=== PATIENT | female | born 1990 | race Caucasian/White ===

== ENCOUNTER 2023-08-20 22:41 | Emergency (ER) | payer OTHER ==
[~2023-08-20] VITALS: Ht 172.7 cm; Wt 74.8 kg
[2023-08-20 23:48] VITALS: BP 106/68; TEMP 98.1; O2SAT 98
[2023-08-20] MEDS ORDERED: ERYT3.5O9 EACHEYE (23:56)
== END 2023-08-21 00:10 | disposition home or self-care (01) ==
LOC: ER 22:46
DX: H00.011 Hordeolum externum right upper eyelid (principal); F32.A Depression, unspecified; Z79.899 Other long term (current) drug therapy